=== PATIENT | female | born 1955 | race African-American/Black ===

== ENCOUNTER 2023-09-15 15:49 | Inpatient (IN) | payer OTHER ==
[~2023-09-15] VITALS: Ht 170.2 cm; Wt 63.6 kg
[2023-09-15] MEDS ORDERED: DEXTROSE 50% SYRINGE 50 ML IV ONE (15:51)
[2023-09-15] MEDS: DEXTROSE (50%) 50ML SYRG IV ONE (16:07)
[2023-09-15] MEDS: NOREPINEPHRINE 8 MG/250ML KIT 250 ML IV ONE (16:46)
[2023-09-15] MEDS: NOREPINEPHRINE 8 MG/250ML KIT 250 ML IV SCH (16:46)
[2023-09-15 16:57] LABS: Basophils # (auto) 0 10 ^3/uL (0-0.2); Basophils % (auto) 0.3 % (0.0-2.0); Eosinophils # (auto) 0 10 ^3/uL (0-0.8); Eosinophils % (auto) 0.1 % (0.0-7.0); Hematocrit 27.6 % (36.0-46.0); Hemoglobin 8.6 g/dL (12.2-16.2); Lymphocytes # (auto) 0.4 10 ^3/uL (0.4-5.4); Lymphocytes % (auto) 5.8 % (10.0-50.0); Mean Corpuscular Hemoglobin 31.3 pg (28.0-32.0); Mean Corpuscular Hgb Conc. 31.3 g/dL (32.0-36.0); Mean Corpuscular Volume 100.1 fL (80.0-100.0); Monocytes # (auto) 0.7 10 ^3/uL (0-1.3); Monocytes % (auto) 9.1 % (0.0-12.0); Neutrophils # (auto) 6.6 10 ^3/uL (1.6-8.6); Neutrophils % (auto) 84.7 % (37.0-80.0); Red Blood Cells 2.76 10^6/uL (4.0-5.20); Red Cell Distribution Width 16.8 % (11.8-14.3); White Blood Cell 7.8 10^3/uL (4.4-10.8)
[2023-09-15] MEDS: dilTIAZem 25 MG/5 ML VIAL IV ONE (17:05)
[2023-09-15 17:13] LABS: Alanine Aminotransferase 11 U/L (7-40); Albumin 2.3 g/dL (3.2-4.8); Alkaline Phosphatase 95 U/L (46-116); Anion Gap 13 (5-15); Aspartate Aminotransferase 28 U/L (13-40); BUN/Creatinine Ratio 4.9 (10.0-20.0); Bilirubin, Total 0.6 mg/dL (0.2-1.0); Blood Urea Nitrogen 22 mg/dL (9-23); Calcium 8.6 mg/dL (8.7-10.4); Carbon Dioxide 26 mmol/L (20-30); Chloride 96 mmol/L (98-107); Glucose 167 mg/dL (74-106); Lactic Acid w/Reflex 4.4 mmol/L (0.4-2.0); Potassium 3.9 mmol/L (3.5-5.1); Sodium 135 mmol/L (136-145)
[2023-09-15 17:14] LABS: Total Protein 4.4 g/dL (5.7-8.2)
[2023-09-15 17:20] VITALS: PULSE 105; RESP 24; O2SAT 97
[2023-09-15 19:30] VITALS: PULSE 111; RESP 18; O2SAT 94
[2023-09-15] MEDS ORDERED: HYDROcodone-ACET 5/325MG TAB PO PRN (22:15)
[2023-09-15] MEDS ORDERED: ONDANSETRON HCL 4 MG/2 ML VIAL IV PRN (22:15)
[2023-09-15] MEDS ORDERED: DOCUSATE SOD 100 MG CAP PO PRN (22:15)
[2023-09-15] MEDS ORDERED: ACETAMINOPHEN 325 MG TAB PO PRN (22:15)
[2023-09-16] MEDS ORDERED: NITROGLYCERIN 0.4 MG SL TAB SL PRN
[2023-09-16] MEDS ORDERED: MORPHINE SULFATE INJ 2 MG/ml SYRG IV PRN
[2023-09-16] MEDS: MIDODRINE HCL 10 MG TAB PO SCH (06:34)
[2023-09-16] MEDS: SODIUM CHLOR 0.9% PF (SALINE LOCK) 10ML VIAL/SYR IV SCH (06:35)
[2023-09-16 06:41] LABS: Basophils # (auto) 0 10 ^3/uL (0-0.2); Basophils % (auto) 0.4 % (0.0-2.0); Eosinophils # (auto) 0 10 ^3/uL (0-0.8); Eosinophils % (auto) 0.2 % (0.0-7.0); Hematocrit 28.3 % (36.0-46.0); Hemoglobin 9.3 g/dL (12.2-16.2); Lymphocytes # (auto) 1.1 10 ^3/uL (0.4-5.4); Mean Corpuscular Hemoglobin 32.1 pg (28.0-32.0); Mean Corpuscular Hgb Conc. 32.8 g/dL (32.0-36.0); Mean Corpuscular Volume 97.8 fL (80.0-100.0); Monocytes # (auto) 1.4 10 ^3/uL (0-1.3); Monocytes % (auto) 15.3 % (0.0-12.0); Neutrophils # (auto) 6.3 10 ^3/uL (1.6-8.6); Neutrophils % (auto) 72.1 % (37.0-80.0); Nucleated Red Blood Cells % 0.1 %; Red Blood Cells 2.89 10^6/uL (4.0-5.20); Red Cell Distribution Width 16.2 % (11.8-14.3); White Blood Cell 8.8 10^3/uL (4.4-10.8)
[2023-09-16 06:56] LABS: Albumin 2.5 g/dL (3.2-4.8); Alkaline Phosphatase 98 U/L (46-116); Anion Gap 8 (5-15); Aspartate Aminotransferase 24 U/L (13-40); Blood Urea Nitrogen 25 mg/dL (9-23); Carbon Dioxide 31 mmol/L (20-30); Chloride 98 mmol/L (98-107); Glucose 88 mg/dL (74-106); Potassium 4.2 mmol/L (3.5-5.1); Sodium 137 mmol/L (136-145)
[2023-09-16 06:57] LABS: Bilirubin, Total 0.4 mg/dL (0.2-1.0); Total Protein 4.9 g/dL (5.7-8.2)
[2023-09-16 07:01] LABS: Alanine Aminotransferase < 9 U/L (7-40)
[2023-09-16] MEDS: SEVELAMER 800 MG TAB PO SCH (08:00)
[2023-09-16] MEDS: B-COMPLEX W/ C & FOLIC ACID(NEPHROVITE TAB) PO SCH (10:12)
[2023-09-16] MEDS: CARVEDILOL 3.125 MG TAB PO SCH (10:13)
[2023-09-16] MEDS: AMIODARONE HCL 200 MG TAB PO SCH (10:14)
[2023-09-16] MEDS: ASPirin 81 mg TAB PO SCH (10:14)
[2023-09-16] MEDS: APIXABAN 5 MG TAB PO SCH (10:14)
[2023-09-16] MEDS: ALBUMIN 25% 50 ML IV SCH (15:15)
[2023-09-16 15:48] LABS: Triglycerides 91 mg/dL (< 150)
[2023-09-16 15:49] LABS: LDL Cholesterol 24 mg/dL (< 100)
[2023-09-16 15:50] LABS: Cholesterol 86 mg/dL (< 200); HDL Cholesterol 35 mg/dL (40-59)
[2023-09-16] MEDS ORDERED: VANCOMYCIN PER PHARMACY 0 MG IV SCH (16:15)
[2023-09-16] MEDS: VANCOMYCIN 750mg/150ml 150 ML IV ONE (17:14)
[2023-09-16 19:00] VITALS: PULSE 90
[2023-09-16 20:00] VITALS: BP 100/58; PULSE 90; PULSE 99; RESP 16; TEMP 98.2; O2SAT 96
[2023-09-16 21:00] VITALS: BP 100/58; PULSE 99; RESP 16; TEMP 98.2; O2SAT 96
[2023-09-16] MEDS: ATORVASTATIN 20 MG TAB PO SCH (21:52)
[2023-09-16] MEDS ORDERED: ATORVASTATIN 20 MG TAB PO SCH (22:00)
[2023-09-17] VITALS (15 sets, daily range): BP systolic 87–108; BP diastolic 58–73; PULSE 90–111; RESP 13–20; TEMP 97.7–98.4; O2SAT 90–100
[2023-09-17 05:53] LABS: Basophils # (auto) 0 10 ^3/uL (0-0.2); Basophils % (auto) 0.2 % (0.0-2.0); Eosinophils # (auto) 0.1 10 ^3/uL (0-0.8); Eosinophils % (auto) 1.1 % (0.0-7.0); Hemoglobin 8.6 g/dL (12.2-16.2); Lymphocytes # (auto) 0.8 10 ^3/uL (0.4-5.4); Mean Corpuscular Hemoglobin 31.4 pg (28.0-32.0); Mean Corpuscular Hgb Conc. 31.9 g/dL (32.0-36.0); Mean Corpuscular Volume 98.7 fL (80.0-100.0); Monocytes # (auto) 1.2 10 ^3/uL (0-1.3); Monocytes % (auto) 14.1 % (0.0-12.0); Neutrophils # (auto) 6.6 10 ^3/uL (1.6-8.6); Neutrophils % (auto) 75.6 % (37.0-80.0); Nucleated Red Blood Cells % 0.1 %; Red Blood Cells 2.74 10^6/uL (4.0-5.20); Red Cell Distribution Width 16.4 % (11.8-14.3); White Blood Cell 8.8 10^3/uL (4.4-10.8)
[2023-09-17 06:22] LABS: Anion Gap 8 (5-15); Carbon Dioxide 30 mmol/L (20-30); Chloride 98 mmol/L (98-107); Potassium 3.8 mmol/L (3.5-5.1); Sodium 136 mmol/L (136-145)
[2023-09-17 06:24] LABS: Calcium 9.1 mg/dL (8.7-10.4)
[2023-09-17 06:28] LABS: BUN/Creatinine Ratio 4.8 (10.0-20.0); Blood Urea Nitrogen 26 mg/dL (9-23); Glucose 75 mg/dL (74-106)
[2023-09-17] MEDS: VANCOMYCIN 500 MG in D5W 5% 100 ML IV ONE ×2 (18:00→20:14)
[2023-09-17] MEDS: NOREPINEPHRINE 8 MG/250ML KIT 250 ML IV SCH (19:15)
[2023-09-17 21:55] LABS: Body Fluid Red Blood Cells 13 CUMM (0-2000); Body Fluid White Blood Cells 55 CUMM (0-200)
[2023-09-17 21:56] LABS: Body Fluid Polymorphonuclear 8 % (0-25)
[2023-09-18] VITALS (20 sets, daily range): BP systolic 86–103; BP diastolic 54–67; PULSE 93–144; RESP 12–21; TEMP 97.5–98.5; O2SAT 93–100
[2023-09-18] MEDS ORDERED: DEXTROSE (50%) 50ML SYRG IV PRN (08:45)
[2023-09-18] MEDS: InsuLIN REG 1unit/0.01ml Soln (100units/ml) SC SCH (12:00)
[2023-09-18] MEDS: ACCU-CHEK COMFORT CURVE STRIP VI SCH (12:23)
[2023-09-18] MEDS: VANCOMYCIN 500 MG in D5W 5% 100 ML IV ONE (14:11)
== END 2023-09-18 19:14 | disposition short-term general hospital (02) | DRG 64 ==
LOC: ER 15:49 → EDBD 15:49 → EDUNIT# 15:49 → TELE 23:58 → TELE-WESTW 09-16 17:54 → ICU CENTRL 09-17 13:43 → DOU IN ICU 09-17 20:46
PROVIDERS: ADMIT Nurse Practitioner Family; ATTEND Nurse Practitioner Acute Care
PROC: 06HY33Z Insertion of Infusion Device into Lower Vein, Percutaneous Approach (ICD-10-PCS; principal; 2023-09-15)
DX: I60.9 Nontraumatic subarachnoid hemorrhage, unspecified (principal); G93.41 Metabolic encephalopathy; I50.23 Acute on chronic systolic (congestive) heart failure; I21.A1 Myocardial infarction type 2; R57.0 Cardiogenic shock; N18.6 End stage renal disease; I13.2 Hypertensive heart and chronic kidney disease with heart failure and with stage 5 chronic kidney disease, or end stage renal disease; R64 Cachexia; R18.8 Other ascites; N17.9 Acute kidney failure, unspecified; I62.03 Nontraumatic chronic subdural hemorrhage; E11.649 Type 2 diabetes mellitus with hypoglycemia without coma; Z99.2 Dependence on renal dialysis; I48.0 Paroxysmal atrial fibrillation; E11.22 Type 2 diabetes mellitus with diabetic chronic kidney disease; D63.8 Anemia in other chronic diseases classified elsewhere; I34.0 Nonrheumatic mitral (valve) insufficiency; I50.82 Biventricular heart failure; E78.5 Hyperlipidemia, unspecified; Z68.22 Body mass index [BMI] 22.0-22.9, adult; Z79.01 Long term (current) use of anticoagulants; Z88.0 Allergy status to penicillin; Z83.3 Family history of diabetes mellitus; Z82.5 Family history of asthma and other chronic lower respiratory diseases; Z82.49 Family history of ischemic heart disease and other diseases of the circulatory system; W18.39XA Other fall on same level, initial encounter; Y92.098 Other place in other non-institutional residence as the place of occurrence of the external cause; Y93.89 Activity, other specified; Y99.9 Unspecified external cause status; I95.9 Hypotension, unspecified
CPT/HCPCS: 36415; 36556; 70450; 71045; 71250; 74176; 80048; 80053; 80061; 80202; 82962; 83036; 83605; 83880; 84443; 84484; 85025; 86850; 86900; 86901; 87040; 87081; 87205; 89051; 93005; 93306; 93886; 99291; G0378; J1642; J7060